=== PATIENT | female | born 1965 | race Caucasian/White ===

== ENCOUNTER 2024-12-17 06:22 | Day surgery (SDC) | payer BC ==
[2024-12-10 13:21] VITALS: BMI 25.4
[2024-12-17] MEDS ORDERED: Ondansetron PF 4 MG/2 ML Vial ONE (08:20)
[2024-12-17] MEDS ORDERED: Lidocaine 2% MPF 10 ML AMP (For Epidural Use) ONE (08:21)
[2024-12-17] MEDS ORDERED: PROPOFOL 40 ML ONE (08:28)
== END 2024-12-17 09:45 | disposition home or self-care (01) ==
LOC: CSHSDC 06:22
PROVIDERS: ATTEND Surgery
PROC: 0DJD8ZZ Inspection of Lower Intestinal Tract, Via Natural or Artificial Opening Endoscopic (ICD-10-PCS; principal; 2024-12-17)
DX: D64.9 Anemia, unspecified (principal); Q27.30 Arteriovenous malformation, site unspecified; E78.00 Pure hypercholesterolemia, unspecified; Z88.0 Allergy status to penicillin; Z79.899 Other long term (current) drug therapy
CPT/HCPCS: J1100; J2405; J2704